=== PATIENT | female | born 1955 | race Caucasian/White ===

== ENCOUNTER 2024-06-10 19:19 | Emergency (ER) | payer OTHER ==
[2024-06-10 19:43] VITALS: BP 119/65; PULSE 87; RESP 18; TEMP 98.7; BMI 45.7
[2024-06-10] MEDS ORDERED: ACETAMINOPHEN 500 MG TABLET (FP) ONE (21:04)
[2024-06-10] MEDS: ACETAMINOPHEN 500 MG TABLET (FP) PO ONE (21:05)
== END 2024-06-10 22:16 | disposition home or self-care (01) ==
LOC: JERFT 19:19
DX: M25.561 Pain in right knee (principal); M25.562 Pain in left knee; M25.531 Pain in right wrist; M25.532 Pain in left wrist; M25.511 Pain in right shoulder; W01.0XXA Fall on same level from slipping, tripping and stumbling without subsequent striking against object, initial encounter
CPT/HCPCS: 73030-TC-RT-FY; 73110-TC-LT-FY; 73110-TC-RT-FY; 73562-TC-LT-FY; 73562-TC-RT-FY; 99284-25